=== PATIENT | female | born 1995 | race Caucasian/White ===

== ENCOUNTER 2016-12-09 16:40 | Emergency (ER) | payer BC, OTHER ==
[~2016-12-09] VITALS: Ht 160 cm; Wt 104.3 kg
[2016-12-09] MEDS ORDERED: ETHI1TAB (16:59)
[2016-12-09] MEDS ORDERED: ISOT40CA (16:59)
[2016-12-09] MEDS ORDERED: HYDROcodone/APAP 5 MG/325 MG (LORTAB) TAB PO ONE (17:00)
--- NOTE | 2016-12-09 17:01 | ED Lower Extremity ---
General Chief Complaint: Lower Extremity Stated Complaint: RIGHT LEG INJ Source: patient Exam Limitations: no limitations History of Present Illness Time seen by provider: 16:57 Initial Comments To ER with right lateral ankle pain after a fall from tripping. She felt a popping sensation Onset: just prior to arrival Severity: moderate Pain/Injury Location: right ankle Method of Injury: fell Allergies and Home Medications Allergies Coded Allergies: Penicillins (Verified Allergy, Unknown, 12/09/16) Home Medications Ethinyl Estradiol/Drospirenone 1 Each Tablet #84 (Reported) Isotretinoin 40 Mg Capsule #60 (Reported) Constitutional: see HPI EENTM: see HPI Respiratory: no symptoms reported Cardiovascular: no symptoms reported Genitourinary: no symptoms reported Musculoskeletal: see HPI Skin: no symptoms reported Psychiatric/Neurological: No Symptoms Reported Past Yicvxsw-Feyslv-Rdxcfo Hx Patient Social History Alcohol Use: Denies Use Recreational Drug Use: No Smoking Status: Never a Smoker Recent Foreign Travel: No Contact w/Someone Who Travel: No Recent Hopitalizations: No Seasonal Allergies Seasonal Allergies: No Surgeries HX Surgeries: No Physical Exam Vital Signs Vital Sign - Last 12Hours 12/09/16 16:45 Temp 98.2 Pulse 74 Resp 18 B/P 145/81 Pulse Ox 97 Capillary Refill : General Appearance: WD/WN no apparent distress HEENT: PERRL/EOMI normal ENT inspection Neck: non-tender full range of motion Respiratory: no respiratory distress no accessory muscle use Gastrointestinal: non tender soft Hips: bilateral hip non-tender, bilateral hip normal inspection, bilateral hip normal range of motion Legs: bilateral leg non-tender, bilateral leg normal inspection, bilateral leg normal range of motion Knees: bilateral knee non-tender, bilateral knee normal inspection, bilateral knee normal range of motion Ankles: right ankle pain, right ankle soft tissue tenderness, right ankle swelling Feet: bilateral foot non-tender, bilateral foot normal inspection, bilateral foot normal range of motion Neurologic/Psychiatric: alert normal mood/affect oriented x 3 Skin: normal color warm/dry Progress/Results/Core Measures Results/Orders My Orders Orders-JORDYN AZUL APRN Ankle, Right, 3 Views (12/09/16 16:54) Hydrocodone/Apap 5/325 Tablet (Lortab 5 (12/09/16 17:00) Medications Given in ED Current Medications Medications Dose Ordered Sig/Alanis Route Start Time Stop Time Status Last Admin Dose Admin Acetaminophen/ Hydrocodone Bitart 1 tab ONCE ONCE PO 12/09/16 17:00 12/09/16 17:01 DC 12/09/16 17:06 1 TAB Vital Signs/I&O Vital Sign - Last 12Hours 12/09/16 16:45 Temp 98.2 Pulse 74 Resp 18 B/P 145/81 Pulse Ox 97 Diagnostic Imaging Diagonstic Imaging: Xray Comments NAME: MARIS PEREZ [facility] REC#: [id number] PT STATUS: REG ER : 1995 PHYSICIAN: JORDYN AZUL APRN ADMIT DATE: 12/09/16/ER Draft Date of Exam:12/09/16 ANKLE, RIGHT, 3 VIEWS INDICATION: 21-year-old female injured fall presents with right ankle pain. COMPARISON: None. EXAMINATION: Three views of the right ankle were obtained. FINDINGS: No evidence of new or healing fractures, bony destruction or remodeling. The right ankle mortise is preserved. There is some minimal soft tissue swelling over the lateral malleolus. IMPRESSION: Some soft tissue swelling over the lateral malleolus but no evidence of acute fracture or subluxation with intact right ankle mortise. Dictated on workstation # [id number] Dict: 12/09/16 1729 Trans: 12/09/16 1733 [facility] [id number] Interpreted by: THOMAS GUZMAN MD Electronically signed by: Departure Impression Impression: Primary Impression: Ankle sprain Qualified Code: S93.402A - Sprain of unspecified ligament of left ankle, initial encounter Disposition: 01 HOME, SELF-CARE Condition: Stable Departure-Patient Inst. Decision time for Depature: 17:42 Referrals: NO,LOCAL PHYSICIAN (PCP) Primary Care Physician AMARILIS PAEZ MD,ANGIE PATRICIA MD,YOSEPH LUTHER,CARISSA PATRICIA,RIMMA MELENDEZ,CRISTHIAN Lauren MD Patient Instructions: Ankle Sprain Add. Discharge Instructions: 1. Return to ER for any concerns 2. Follow-up with your doctor next week for any persistent pain 3. Tylenol and Motrin as needed for pain. Keep an Fredi wrap on the ankle and ice pack as much as possible for the next 24-48 hours and keep it elevated 4. Use the crutches as needed for pain with weightbearing while walking. All discharge instructions reviewed with patient and/or family. Voiced understanding. JORDYN AZUL APRN Dec 09, 2016 17:01
--- NOTE | 2016-12-09 17:34 | Diagnostic Imaging Report ---
INDICATION: 21-year-old female injured fall presents with right ankle pain. COMPARISON: None. EXAMINATION: Three views of the right ankle were obtained. FINDINGS: No evidence of new or healing fractures, bony destruction or remodeling. The right ankle mortise is preserved. There is some minimal soft tissue swelling over the lateral malleolus. IMPRESSION: Some soft tissue swelling over the lateral malleolus but no evidence of acute fracture or subluxation with intact right ankle mortise. Dictated by: Dictated on workstation # [id number]
[2016-12-09 17:50] VITALS: BP 123/77
== END 2016-12-09 17:51 | disposition home or self-care (01) ==
LOC: ER 16:43
DX: S93.401A Sprain of unspecified ligament of right ankle, initial encounter (principal); X50.0XXA Overexertion from strenuous movement or load, initial encounter; Y99.8 Other external cause status
CPT/HCPCS: 73610; 99283

== ENCOUNTER → 2016-12-15 | Outpatient (CLI) | payer BC ==
[~2016-12-15] MED LIST: ETHI1TAB; ISOT40CA
--- OUTSIDE RECORDS SUMMARY | 2016-12-15 17:40 | XMS REPORT | Continuity of Care Document ---
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 Name Role Phone NO, LOCAL PHYSICIAN PCP Unavailable Insurance Providers Payer Name Policy Number Subscriber Name Relationship Unknown Advance Directives Directive Response Recorded Date/Time Advance Directives No 12/09/16 4:45pm Resuscitation Status Full Code 12/09/16 4:45pm Chief Complaint and Reason for Visit Chief Complaint Lower Extremity Reason for Visit Ankle sprain Problems Active Problems Medical Problem Onset Date Status Ankle sprain Unknown Acute Medications Current Home Medications Medication Dose Units Route Directions Days/Qty Instructions Start Date Ethinyl Estradiol/Drospirenone 1 Each 84 12/09/16 Isotretinoin 40 Mg 60 12/09/16 Social History Social History Problem Response Recorded Date/Time Alcohol Use Denies Use 12/09/2016 4:45pm Recreational Drug Use No 12/09/2016 4:45pm Recent Foreign Travel No 12/09/2016 4:45pm Recent Infectious Disease Exposure No 12/09/2016 4:45pm Hospitalization with Isolation Denies 12/09/2016 4:45pm Smoking Status Never a Smoker 12/09/2016 4:45pm Recent Hopitalizations No 12/09/2016 4:45pm Hospitalization with Isolation Denies 12/09/2016 4:45pm Query Response Start Date Stop Date Smoking Status Never a Smoker Hospital Discharge Instructions No hospital discharge instructions. Plan of Care Discharge Date 12/09/16 5:51pm Disposition 01 HOME, SELF-CARE Condition at Discharge Stable Instructions/Education Provided Ankle Sprain Prescriptions See Medication Section Referrals NO,LOCAL PHYSICIAN - Primary Care Physician AMARILIS PAEZ MD,MARIKA HERNANDEZ,ANGIE KNIGHT - WINNIE,YOSEPH Mccarthy MD - HOMA,CARISSA Jj MD - BELEM,RIMMA CHURCH,CRISTHIAN Lauren MD - Additional Instructions/Education 1. Return to ER for any concerns 2. Follow-up with your doctor next week for any persistent pain 3. Tylenol and Motrin as needed for pain. Keep an Fredi wrap on the ankle and ice pack as much as possible for the next 24-48 hours and keep it elevated 4. Use the crutches as needed for pain with weightbearing while walking. All discharge instructions reviewed with patient and/or family. Voiced understanding. Functional Status No functional status results. Allergies, Adverse Reactions, Alerts Allergen Type Severity Reaction Status Last Updated Penicillins ([id number]) Allergy Unknown Active 12/09/16 Immunizations No immunization records. Vital Signs Acute Vital Signs Vital Response Date/Time Temperature (Fahrenheit) 98.2 degrees F (97.6 - 99.5) 12/09/2016 5:50pm Temperature (Calculated Celsius) 36.39631 degrees C (36.4 - 37.5) 12/09/2016 5:50pm Pulse Rate (adult) 74 bpm (60 - 90) 12/09/2016 5:50pm Respiratory Rate 18 bpm (12 - 24) 12/09/2016 5:50pm O2 Sat by Pulse Oximetry 97 % (88 - 100) 12/09/2016 5:50pm Blood Pressure 123/77 mm Hg 12/09/2016 5:50pm Blood Pressure Mean 102 mm Hg 12/09/2016 4:45pm Pain Numeric Pain Scale 3 12/09/2016 5:50pm Height (Feet) 5 feet 12/09/2016 4:45pm Height (Inches) 3 inches 12/09/2016 4:45pm Height (Calculated Centimeters) 160.328799 cm 12/09/2016 4:45pm Weight (Pounds) 230 pounds 12/09/2016 4:45pm Weight (Calculated Kilograms) 104.808081 kilograms 12/09/2016 4:45pm Capillary Refill Capillary Refill Less Than 3 Seconds 12/09/2016 4:45pm Height 5 ft 3 in Weight 230 lb Body Mass Index 40.7 kg/m^2 Results No known relevant diagnostic tests, laboratory data and/or discharge summary. Procedures No known history of procedures. Encounters Encounter Location Arrival/Admit Date Discharge/Depart Date Attending Provider Registered Emergency Room [facility] 12/09/16 4:43pm JORDYN AZUL APRN Recent Diagnosis
--- NOTE | 2016-12-16 09:18 | Diagnostic Imaging Report ---
PROCEDURE: MRI right joint lower extremity without contrast. TECHNIQUE: Multiplanar, multisequence non contrast-enhanced MRI of the right lower extremity was accomplished. INDICATION: Injury, ankle pain. COMPARISON: There are no previous MRI examinations available for comparison. The plain film examination of the right ankle performed on 12/09/2016 noted soft tissue edema about the ankle joint but failed to show any sign of a fracture. I have reviewed that study and agree with the interpretation of that exam. FINDINGS: However, on this exam, there is a nondisplaced fracture line extending longitudinally through the lateral malleolus of the distal fibula. There is a second nondisplaced fracture line extending obliquely through the lateral aspect of the tibia. However, there does not appear to be much associated bone edema with either of these suspected fracture lines. In addition, the STIR sagittal series shows diffusely increased signal throughout the neck of the talus and the medial aspect of the talar dome. There are also similar-appearing areas of abnormal signal involving the medial malleolus, the superior margin of the midportion of the calcaneus and much of the distal cuboid bone. These areas of abnormal signal are felt to be secondary to bone edema related to recent contusions and/or microfractures. No other bony abnormality is appreciated. The major ligaments and tendons appear to be intact. However, there is some fluid in the tendon sheaths of the posterior tibialis, flexor digitorum longus, flexor hallucis longus and peroneal tendon sheaths. The presence of fluid does suggest that there is an element of tenosynovitis present. There is also soft tissue edema present particularly along the lateral aspect and dorsum of the midfoot. A moderate ankle joint effusion is also evident. IMPRESSION: 1. There are nondisplaced fractures of the lateral malleolus and lateral distal tibia but there is only mild bone edema associated with these injuries. There is much more bone edema associated with the suspected contusions and/or microfractures involving the neck of the talus and the medial aspect of the talus. The medial malleolus, calcaneus and cuboid bone also show evidence of bone edema from a recent contusion and/or microfracture. 2. The major ligaments and tendons are intact but there is tenosynovitis as described above. 3. There is considerable soft tissue edema and inflammation along the dorsum of the lateral aspect of the midfoot. Dictated by: Dictated on workstation # [id number]
== END ==
LOC: RAD 17:36
PROVIDERS: ATTEND Orthopaedic Surgery
DX: S82.54XA Nondisplaced fracture of medial malleolus of right tibia, initial encounter for closed fracture (principal); S93.491A Sprain of other ligament of right ankle, initial encounter; X58.XXXA Exposure to other specified factors, initial encounter; Y99.8 Other external cause status
CPT/HCPCS: 73721